=== PATIENT | male | born 1960 | race Caucasian/White ===

== ENCOUNTER 2017-02-09 18:48 | Emergency (ER) | payer OTHER ==
[2017-02-09 18:48] VITALS: BMI 18.4
[2017-02-09 18:53] VITALS: BP 110/68; PULSE 66; RESP 18; TEMP 99.1; O2SAT 99
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
== END 2017-02-09 19:28 | disposition home or self-care (01) ==
LOC: H.ER 18:48
DX: F10.129 Alcohol abuse with intoxication, unspecified (principal); Y90.9 Presence of alcohol in blood, level not specified; W22.8XXA Striking against or struck by other objects, initial encounter; Y93.55 Activity, bike riding

== ENCOUNTER 2018-07-08 02:05 | Emergency (ER) | payer OTHER ==
[2018-07-08 02:05] VITALS: BMI 19.1
--- NOTE | 2018-07-08 03:21 | ED PDOC ---
HPI: Male Pain Time Seen by Provider: 07/08/18 02:58 Chief Complaint (Nursing): Male Genitourinary Chief Complaint (Provider): testicular swelling History Per: Patient History/Exam Limitations: no limitations Onset/Duration Of Symptoms: Days Current Symptoms Are (Timing): Still Present Additional Complaint(s): 57 y/o male history of liver cirrhosis (with ascites) presents for evaluation of swelling to genitals x 5 days. Patient states he was evaluated here for same and "just given a pill and shot and discharged", and then he came back the next day and left because they "sat him in the waiting room for too long". Patient denies fever, nausea/vomiting, chest pain, shortness of breath, palpitations, abdominal pain, dysuria, hematuria, changes in bowel movements Past Medical History Reviewed: Historical Data, Nursing Documentation, Vital Signs Vital Signs: Last Vital Signs Temp 97.3 F L 07/08/18 02:33 Pulse 92 H 07/08/18 02:33 Resp 18 07/08/18 02:33 BP 114/79 07/08/18 02:33 Pulse Ox 100 07/08/18 02:33 - Medical History PMH: Anemia, Anxiety, Depression, Fractures (L ankle sx), Gastritis, HTN Denies: Diabetes, Hepatitis, HIV, Hypercholesterolemia, Chronic Kidney Disease, Seizures, Sexually Transmitted Disease - Surgical History Surgical History: Endoscopy - Family History Family History: States: Unknown Family Hx - Home Medications Home Medications: Ambulatory Orders Medication Instructions Recorded Clotrimazole/Betamethasone 30 ml TOP Q12 #1 bottle 06/12/18 [Lotrisone] Esomeprazole Magnesium [Nexium] 40 mg PO DAILY #30 capsule. 06/12/18 Ferrous Sulfate [Feosol] 325 mg PO DAILY #30 tab 06/12/18 Folic Acid 1 mg PO DAILY #30 tab 06/12/18 Furosemide [Lasix] 20 mg PO DAILY #30 tab 06/12/18 Mv-Min/Folic/Vit K/Lycop/Coq10 1 cap PO DAILY #30 capsule 06/12/18 [Daily Multivitamin Capsule] Propranolol [Inderal] 10 mg PO Q12 #60 tab 06/12/18 Spironolactone [Aldactone] 25 mg PO DAILY #30 tablet 06/12/18 Thiamine HCl [B-1] 100 mg PO DAILY #30 tablet 06/12/18 chlordiazePOXIDE [Librium] 10 mg PO Q8 #11 cap 06/12/18 - Allergies Allergies/Adverse Reactions: Allergies Allergy/AdvReac Type Severity Reaction Status Date / Time No Known Allergies Allergy Verified 07/04/18 22:29 Review of Systems ROS Statement: Except As Marked, All Systems Reviewed And Found Negative Genitourinary Male: Positive for: Scrotal Pain Physical Exam - Reviewed Nursing Documentation Reviewed: Yes Vital Signs Reviewed: Yes - Physical Exam Appears: Positive for: Well, Non-toxic, No Acute Distress Head Exam: Positive for: ATRAUMATIC, NORMAL INSPECTION, NORMOCEPHALIC Skin: Positive for: Normal Color Eye Exam: Positive for: Normal appearance ENT: Positive for: Normal ENT Inspection Cardiovascular/Chest: Positive for: Regular Rate, Rhythm Respiratory: Positive for: Normal Breath Sounds Gastrointestinal/Abdominal: Positive for: Bowel Sounds, Soft, Asicites. Negative for: Tenderness Male Genital Exam: Positive for: other (swelling to bilateral testes and penis (retractable). 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 Negative for: urethral discharge - ECG O2 Sat by Pulse Oximetry: 100 - Progress ED Course And Treament: labs reviewed from 07/04 visit; no acute findings -testes u/s -udip Ultrasound of the testicles. Indication: Scrotal swelling. Technique: Real-time ultrasound images with Doppler evaluation. Findings: Right testicle measures 3.6 x3.3x1.5 cm. Homogeneous echotexture of right testicle. Normal right testicular flow. Right epididymis measures 4x0.8x1.5 cm. Edema of the right epididymis. Increased vascularity of the right epididymis. Moderate right hydrocele is noted. Debris are noted in the right hemiscrotum. The left testicle measures 3.4 times a 3.2x2 cm. Homogeneous and normal left testicular flow. Mild left hydrocele is noted. The left epididymis measures 3.6x0.9x1.1 cm. Enlarged left epididymis. Increased vascularity of the left epididymis. Mobile debris are noted in the left hemiscrotum. Diffuse scrotal edema. Impression: Homogeneous testicles. Diffuse scrotal edema. Moderate bilateral hydroceles with associated debris. Probably infectious/inflammatory pathology without evidence of mass lesion or loculated abscess formation.No evidence of testicular torsion. Acute inflammatory changes of the right epididymis. Acute inflammatory changes of the left epididymis Patient sleeping on re-eval Case discussed with ED attending Dr. Arreola, advised scrotal support and outpatient follow up Patient educated on findings, discharged with instructions on scrotal support Advised follow up urology NSAIDs PRN pain Follow up PMD Stop drinking Return precautions given Disposition - Clinical Impression Clinical Impression: Swollen testis - Patient ED Disposition Is Patient to be Admitted: No Counseled Patient/Family Regarding: Studies Performed, Diagnosis, Need For Followup - Disposition Referrals: Troy Mckeon MD [Medical Doctor] - Disposition: Routine/Home Disposition Time: 04:58 Condition: STABLE Instructions: Epididymitis
[2018-07-08 05:37] VITALS: BP 112/79; PULSE 89; RESP 16; TEMP 98.4
--- NOTE | 2018-07-08 13:29 | US ---
Date of service: 07/08/2018 HISTORY: bilateral swelling, history of ascites TECHNIQUE: Realtime sonography through the scrotum with color and doppler flow. COMPARISON: 10/25/2015 testicular ultrasound. 06/12/2018 CT abdomen pelvis. FINDINGS: RIGHT TESTICLE: Measures 1.5 x 3.3 x 3.7 cm. Normal echotexture and flow. RIGHT EPIDIDYMIS: Epididymal head measures 0.8 x 1.5 x 4.1 cm. Heterogeneous, enlarged, hypervascular with adjacent fluid. LEFT TESTICLE: Measures 2 x 3.2 x 3.4 cm. Normal echotexture and flow. LEFT EPIDIDYMIS: Epididymal head measures 1 x 3.6 x 0.9 cm. Enlarged, heterogeneous and hypervascular. HYDROCELE: Complex bilateral hydroceles, small volume. VARICOCELE: None. OTHER FINDINGS: Scrotal edema bilaterally. IMPRESSION: Findings consistent with epididymitis bilaterally. This represents new findings compared to prior studies. Scrotal edema bilaterally. New finding compared to prior study. Complex hydroceles bilaterally. Progressive findings bilaterally. Negative study for orchitis or torsion. Concordant findings (preliminary report) provided by [facility].
[2018-07-10 02:28] VITALS: O2SAT 100
== END 2018-07-08 05:41 | disposition home or self-care (01) ==
LOC: H.ER 02:05 → MERGE 02:05 → H.ER 05:41
DX: N45.1 Epididymitis (principal); I10 Essential (primary) hypertension; K74.60 Unspecified cirrhosis of liver; F41.9 Anxiety disorder, unspecified